=== PATIENT | female | born 1995 | race Asian ===

== ENCOUNTER 2016-09-09 08:01 | Emergency (ER) | payer OTHER ==
[~2016-09-09] VITALS: Ht 172.7 cm; Wt 64.0 kg
[2016-09-09 08:16] VITALS: TEMP 36.6; Ht 172.7 cm; Wt 64.0 kg
[2016-09-09 08:24] VITALS: O2SAT 96
--- NOTE | 2016-09-09 08:54 | EMERGENCY ROOM VISIT NOTE ---
History Report prepared by Luciano: Clayton Singh Under the Supervision of: Dr. Hailey Mehta M.D. First contact with patient: 08:11 Chief Complaint: MENTAL HEALTH EVALUATION History of Present Illness The patient is a 21 year old female who presents to the Emergency Room for a mental francesco evaluation. Recently, the patient has been having relationship troubles. She states that she has been "back and forth" with him for quite some time, and fought with him on the phone yesterday. She was not drinking alcohol at this time. After the phone call, she began to feel increasingly anxious and proceeded to cut her wrists with a small razor. She states that she did this because she felt very depressed and anxious, and cutting her wrists lessened her anxiety. She was not trying to kill herself, and she states that she has never thought about killing herself. After this episode, her friends came over, and they went to a alliance party. She started drinking alcohol at midnight and went back to her apartment 5 hours later. 2 hours ago, the patient began feeling very short of breath, and her friends called the ambulance. Her breathing did not cause pain with deep breaths, but she states it was just hard to breathe. She denies any trauma or any negative occurrence at the alliance party. She states that she did not drink a significant amount of alcohol and did not throw up. She currently says that she feels better. She is unsure whether or not her breathing difficulty was anxiety based or physically based. She denies any fevers, cough, or sore throat. She says that she does not feel significantly intoxicated at this time. She saw a psychiatrist earlier this year for her anxiety and depression, but they were not covered by her medical insurance. She is not taking any control. She received immunizations before coming to college, but does not remember the names of them. Source of History: patient Onset: Last night Position: other (global) Symptom Intensity: moderate Quality: other (Mental Health Evaluation) Timing: constant Associated Symptoms: + SOB, No cough, No fevers, No sorethroat, No vomiting Review of Systems See HPI for pertinent positives & negatives. A total of 10 systems reviewed and were otherwise negative. Past Medical & Surgical Medical Problems: (1) No Known Active Medical Problems Family History Patient reports no known family medical history. Social History Smoking Status: Never Smoker Smokeless Tobacco Use: No Alcohol Use: occasionally Drug Use: none Marital Status: single Occupation Status: student Current/Historical Medications No Active Prescriptions or Reported Meds Allergies Coded Allergies: No Known Allergies (Unverified , 09/09/16) Physical Exam Vital Signs Date Time Temp Pulse Resp B/P Pulse Ox O2 Delivery O2 Flow Rate FiO2 09/09/16 12:58 93 16 110/74 97 Room Air 09/09/16 12:00 88 16 98/45 97 Room Air 09/09/16 11:01 94 16 109/48 96 09/09/16 09:10 90 16 106/54 97 Room Air 09/09/16 08:24 96 Nasal Cannula 2.0 09/09/16 08:16 36.6 108 16 107/72 93 Room Air 09/09/16 08:15 96 Physical Exam Vital signs reviewed. General: Odor of EtOH in the breath, disheveled 21-year-old female. Does not smell like emesis. No signs of trauma. HEENT: Mild scleral injection bilaterally, PERRLA, neck supple, dry mucous membranes. Cardiovascular: Regular rate and rhythm, no extra sounds. Pulmonary: Clear to auscultation bilaterally, normal work of breathing. Abdomen: Soft, nontender, nondistended, positive bowel sounds. Musculoskeletal: Superficial linear abrasions to the left wrist, no peripheral edema Skin: Warm, dry, no rash. Atraumatic. Neurologic: Awake, alert, and oriented x3. Somewhat intoxicated. Psychologic: Denies homicidal and suicidal ideations. Medical Decision & Procedures Laboratory Results 09/09/16 09:05 Red Blood Count 3.77, Mean Corpuscular Volume 92.8, Mean Corpuscular Hemoglobin 31.3, Mean Corpuscular Hemoglobin Concent 33.7, Mean Platelet Volume 10.7, Neutrophils (%) (Auto) 63.6, Lymphocytes (%) (Auto) 26.1, Monocytes (%) (Auto) 9.0, Eosinophils (%) (Auto) 0.5, Basophils (%) (Auto) 0.6, Neutrophils # (Auto) 4.04, Lymphocytes # (Auto) 1.66, Monocytes # (Auto) 0.57, Eosinophils # (Auto) 0.03, Basophils # (Auto) 0.04 09/09/16 09:05 Test 09/09/16 09:05 09/09/16 09:30 White Blood Count 6.35 K/uL (4.8-10.8) Red Blood Count 3.77 M/uL (4.2-5.4) Hemoglobin 11.8 g/dL (12.0-16.0) Hematocrit 35.0 % (37-47) Mean Corpuscular Volume 92.8 fL (80-100) Mean Corpuscular Hemoglobin 31.3 pg (25-34) Mean Corpuscular Hemoglobin Concent 33.7 g/dl (32-36) Platelet Count 246 K/uL (130-400) Mean Platelet Volume 10.7 fL (7.4-10.4) Neutrophils (%) (Auto) 63.6 % Lymphocytes (%) (Auto) 26.1 % Monocytes (%) (Auto) 9.0 % Eosinophils (%) (Auto) 0.5 % Basophils (%) (Auto) 0.6 % Neutrophils # (Auto) 4.04 K/uL (1.4-6.5) Lymphocytes # (Auto) 1.66 K/uL (1.2-3.4) Monocytes # (Auto) 0.57 K/uL (0.11-0.59) Eosinophils # (Auto) 0.03 K/uL (0-0.5) Basophils # (Auto) 0.04 K/uL (0-0.2) RDW Standard Deviation 45.7 fL (36.4-46.3) RDW Coefficient of Variation 13.4 % (11.5-14.5) Immature Granulocyte % (Auto) 0.2 % Immature Granulocyte # (Auto) 0.01 K/uL (0.00-0.02) Anion Gap 8.0 mmol/L (3-11) Est Creatinine Clear Calc Drug Dose 160.3 ml/min Estimated GFR () > 150.0 Estimated GFR (Non- 133.3 BUN/Creatinine Ratio 14.7 (10-20) Calcium Level 8.9 mg/dl (8.5-10.1) Total Bilirubin 1.0 mg/dl (0.2-1) Direct Bilirubin 0.2 mg/dl (0-0.2) Aspartate Amino Transf (AST/SGOT) 14 U/L (15-37) Alanine Aminotransferase (ALT/SGPT) 26 U/L (12-78) Alkaline Phosphatase 48 U/L (45-117) Total Protein 7.9 gm/dl (6.4-8.2) Albumin 4.3 gm/dl (3.4-5.0) Salicylates Level < 1.7 mg/dl (2.8-20) Acetaminophen Level < 2 ug/ml (10-30) Ethyl Alcohol mg/dL 143.0 mg/dl (0-3) Urine Color YELLOW Urine Appearance CLEAR (CLEAR) Urine pH 5.5 (4.5-7.5) Urine Specific [place] 1.016 (1.000-1.030) Urine Protein NEG (NEG) Urine Glucose (UA) NEG (NEG) Urine Ketones NEG (NEG) Urine Occult Blood NEG (NEG) Urine Nitrite NEG (NEG) Urine Bilirubin NEG (NEG) Urine Urobilinogen NEG (NEG) Urine Leukocyte Esterase NEG (NEG) Urine Opiates Screen NEG (NEG) Urine Methadone, Qualitative NEG (NEG) Urine Barbiturates NEG (NEG) Urine Phencyclidine (PCP) Level NEG (NEG) Ur Amphetamine/Methamphetamine NEG (NEG) MDMA (Ecstasy) Screen NEG (NEG) Urine Benzodiazepines Screen NEG (NEG) Urine Cocaine Metabolite NEG (NEG) Urine Marijuana (THC) NEG (NEG) Laboratory results per my review. ED Course 0811: Past medical records reviewed. The patient was evaluated in room A2. A complete history and physical examination was performed. 1300: Upon reevaluation, the patient appeared to have improvement of her symptoms. I discussed findings with her. She verbalized agreement of the treatment plan. She was discharged home. Medical Decision Differential diagnosis: Etiologies such as mood disorder, infection, hypoglycemia, electrolyte abnormalities, cardiac sources, intracerebral event, toxicologic, neurologic, as well as others were entertained. This patient was evaluated and appeared to be in no significant distress. Patient was clinically intoxicated. She was observed until she was medically cleared. Patient was evaluated by mental health is currently stated that she is not suicidal. She has seen a counselor as an outpatient but states she does not wish to have any outpatient services. The patient was felt to be stable, not suicidal or homicidal. She was discharged in care of her friends and outpatient follow-up with her primary care physician/[facility] services was recommended. She will return to the ER for worsening of symptoms or any medical concerns. Impression Primary Impression: Alcohol intoxication Additional Impression: Intentional self-harm Scribe Attestation The scribe's documentation has been prepared under my direction and personally reviewed by me in its entirety. I confirm that the note above accurately reflects all work, treatment, procedures, and medical decision making performed by me. Departure Information Dispostion Home / Self-Care Prescriptions No Active Prescriptions or Reported Meds Referrals No Doctor, Assigned (PCP) Forms HOME CARE DOCUMENTATION FORM, IMPORTANT VISIT INFORMATION Patient Instructions My [facility] Additional Instructions Diagnosis: Intentional self harm, Alcohol intoxication Drink plenty of fluids. Follow up with your doctor this week for reevaluation. Return to emergency for worsening of symptoms or any medical concerns. Problem Qualifiers
[2016-09-09 09:21] LABS: BASO % 0.6 %; BASO ABS # 0.04 K/uL (0-0.2); COMPLETE YES; EOS % 0.5 %; IG% 0.2 %; LYMPH % 26.1 %; LYMPH ABS # 1.66 K/uL (1.2-3.4); MEAN CELL VOLUME 92.8 fL (80-100); MEAN CORPUSCULAR HEMOGLOBIN 31.3 pg (25-34); MEAN CORPUSCULAR HGB CONC 33.7 g/dl (32-36); MEAN PLATELET VOLUME 10.7 fL (7.4-10.4); NEUT % 63.6 %; PLATELET COUNT 246 K/uL (130-400); RED BLOOD COUNT 3.77 M/uL (4.2-5.4); WHITE BLOOD COUNT 6.35 K/uL (4.8-10.8)
[2016-09-09 09:43] LABS: ALT/SGPT 26 U/L (12-78); AST/SGOT 14 U/L (15-37); BLOOD UREA NITROGEN 8 mg/dl (7-18); BUN/CREATININE RATIO 14.7 (10-20); CALCIUM 8.9 mg/dl (8.5-10.1); CARBON DIOXIDE 29 mmol/L (21-32); CHLORIDE 109 mmol/L (98-107); CREATININE 0.56 mg/dl (0.60-1.20); GLUCOSE 88 mg/dl (70-99); POTASSIUM 4.1 mmol/L (3.5-5.1); SODIUM 146 mmol/L (136-145)
[2016-09-09 09:45] LABS: ALKALINE PHOSPHATASE 48 U/L (45-117)
[2016-09-09 09:59] LABS: ACETAMINOPHEN < 2 ug/ml (10-30)
[2016-09-09 10:12] LABS: URINE APPEARANCE CLEAR (CLEAR); URINE BILIRUBIN NEG (NEG); URINE COLOR YELLOW; URINE NITRITE NEG (NEG); URINE PH 5.5 (4.5-7.5); URINE SPECIFIC GRAVITY 1.016 (1.000-1.030); UROBILINOGEN NEG (NEG); ZZUR CULT IF INDIC CLEAN CATCH NO
[2016-09-09 10:17] LABS: MANUAL MICROSCOPIC REQUIRED? NO; REVIEW REQ? NO
[2016-09-09 10:56] LABS: BENZODIAZEPINE, URINE NEG (NEG); COCAINE,URINE NEG (NEG); PHENCYCLIDINE, URINE NEG (NEG)
[2016-09-09 12:58] VITALS: BP 110/74; PULSE 93; O2SAT 97
== END 2016-09-09 13:25 | disposition home or self-care (01) ==
LOC: C.EDA 08:04
DX: F10.129 Alcohol abuse with intoxication, unspecified (principal); S60.812A Abrasion of left wrist, initial encounter; R06.02 Shortness of breath; F32.9 Major depressive disorder, single episode, unspecified; F41.9 Anxiety disorder, unspecified; X78.8XXA Intentional self-harm by other sharp object, initial encounter

== ENCOUNTER → 2017-07-20 | Outpatient (CLI) | payer OTHER ==
[2017-07-20 16:51] LABS: BASO % 0.6 %; BASO ABS # 0.04 K/uL (0-0.2); EOS % 1.1 %; EOS ABS # 0.08 K/uL (0-0.5); HEMATOCRIT 34.5 % (37-47); HEMOGLOBIN 11.6 g/dL (12.0-16.0); IG# 0.01 K/uL (0.00-0.02); LYMPH % 34.9 %; LYMPH ABS # 2.46 K/uL (1.2-3.4); MEAN CELL VOLUME 92.2 fL (80-100); MEAN CORPUSCULAR HGB CONC 33.6 g/dl (32-36); MEAN PLATELET VOLUME 11.8 fL (7.4-10.4); MONO % 9.8 %; MONO ABS # 0.69 K/uL (0.11-0.59); NEUT % 53.5 %; NEUT ABS # 3.76 K/uL (1.4-6.5); PLATELET COUNT 188 K/uL (130-400); RED CELL DISTRIBUTION WIDTH CV 12.7 % (11.5-14.5); RED CELL DISTRIBUTION WIDTH SD 43.3 fL (36.4-46.3); WHITE BLOOD COUNT 7.04 K/uL (4.8-10.8)
[2017-07-20 17:32] LABS: ALBUMIN 3.9 gm/dl (3.4-5.0); ALT/SGPT 21 U/L (12-78); BLOOD UREA NITROGEN 14 mg/dl (7-18); CALCIUM 9.3 mg/dl (8.5-10.1); CARBON DIOXIDE 29 mmol/L (21-32); CREATININE 0.54 mg/dl (0.60-1.20); GLUCOSE 78 mg/dl (70-99); POTASSIUM 4.2 mmol/L (3.5-5.1); SODIUM 138 mmol/L (136-145)
[2017-07-20 17:43] LABS: ALKALINE PHOSPHATASE 42 U/L (45-117); AST/SGOT 13 U/L (15-37); TOTAL PROTEIN 7.2 gm/dl (6.4-8.2)
== END | disposition home or self-care (01) ==
LOC: C.LAB1850 15:39
PROVIDERS: ATTEND Neuromusculoskeletal Medicine & OMM
DX: L67.8 Other hair color and hair shaft abnormalities (principal); L60.3 Nail dystrophy; Z87.19 Personal history of other diseases of the digestive system